=== PATIENT | female | born 1990 | race Caucasian/White ===

== ENCOUNTER 2022-02-22 15:29 | Outpatient (CLI) | payer BC, SELFPAY ==
[2022-02-22 12:10] LABS: CREATININE 0.7 mg/dL (0.55-1.02); Estimated GFR 119.24 (mL/min/1.73m2)
== END 2022-02-22 15:30 | disposition home or self-care (01) ==
PROVIDERS: PCP Radiology Radiation Oncology; Visit Provider Radiology Radiation Oncology
DX: C51.9 Malignant neoplasm of vulva, unspecified (principal)
CPT/HCPCS: 36415; 82565

== ENCOUNTER 2022-03-22 17:34 | Outpatient (CLI) | payer BC, SELFPAY ==
[2022-03-22 13:27] LABS: Abs Immature Grans 0.04 10^3/uL (0.0-0.06); Absolute Basophil Count 0.04 10^3/uL (0.0-0.2); Absolute Eosinophil Count 0.21 10^3/uL (0.0-0.7); Absolute Lymphocyte Count 1.82 10^3/uL (1.2-3.4); Absolute Monocyte Count 0.57 10^3/uL (0.1-0.8); Absolute Neutrophil Count 6.24 10^3/uL (1.2-6.7); Basophils % 0.4; Eosinophils % 2.4; HGB 13.8 g/dL (11.2-15.7); Immature Grans % 0.4; Lymphocytes % 20.4; MCHC 35.4 % (32.0-36.0); MCV 91 fL (80-95); MPV 10.1 fL (8.0-11.0); Monocytes % 6.4; Platelet Count 284 10^3/uL (130-400); RBC 4.31 10^6/uL (3.93-5.22); RDW 11.4 % (11.7-14.6); RDW-SD 38.2 fL; WBC 8.92 10^3/uL (4.4-10.8)
[2022-03-22 14:02] LABS: ALT 34 U/L (14-59); AST 20 U/L (15-37); Alkaline Phosphatase 78 U/L (46-116); Anion Gap 9.9 mmol/L (3-11); BUN 12 mg/dL (7-18); Bilirubin, Total 0.4 mg/dL (0.2-1.0); CO2 25.1 mmol/L (21.0-32.0); CREATININE 0.8 mg/dL (0.55-1.02); Calcium 9.2 mg/dL (8.5-10.1); Chloride 100 mmol/L (98-107); Estimated GFR 101.59 (mL/min/1.73m2); Glucose 111 mg/dL (74-106); Magnesium 1.9 mg/dL (1.8-2.4); Potassium 3.9 mmol/L (3.5-5.1); Sodium 135 mmol/L (136-145); Total Protein 7.8 g/dL (6.4-8.2)
== END 2022-03-22 17:35 | disposition home or self-care (01) ==
LOC: LBO 17:34
PROVIDERS: PCP Radiology Radiation Oncology; Visit Provider Nurse Practitioner Adult Health
DX: C51.9 Malignant neoplasm of vulva, unspecified (principal)
CPT/HCPCS: 36415; 80053; 83735; 85025

== ENCOUNTER 2022-03-23 10:48 | Outpatient (CLI) | payer BC, SELFPAY | END 2022-03-23 10:49 | disposition home or self-care (01) | PROVIDERS: PCP Radiology Radiation Oncology; Visit Provider Nurse Practitioner Adult Health | DX: C51.9 Malignant neoplasm of vulva, unspecified (principal) | CPT/HCPCS: 36415; 80053; 83735; 85025 ==

== ENCOUNTER 2022-03-29 03:19 | Outpatient (CLI) | payer BC, SELFPAY ==
[2022-03-29 10:35] LABS: Abs Immature Grans 0.03 10^3/uL (0.0-0.06); Absolute Basophil Count 0.03 10^3/uL (0.0-0.2); Absolute Eosinophil Count 0.18 10^3/uL (0.0-0.7); Absolute Monocyte Count 0.51 10^3/uL (0.1-0.8); Absolute Neutrophil Count 4.95 10^3/uL (1.2-6.7); Basophils % 0.4; Eosinophils % 2.7; HGB 12.6 g/dL (11.2-15.7); Immature Grans % 0.4; Lymphocytes % 14.9; MCH 31.9 pg (27.0-33.0); MCV 91 fL (80-95); MPV 9.8 fL (8.0-11.0); Monocytes % 7.6; Platelet Count 170 10^3/uL (130-400); RBC 3.95 10^6/uL (3.93-5.22); RDW 11.5 % (11.7-14.6); RDW-SD 38.4 fL
[2022-03-29 11:01] LABS: ALT 34 U/L (14-59); AST 19 U/L (15-37); Albumin 3.8 g/dL (3.4-5.0); Alkaline Phosphatase 91 U/L (46-116); Anion Gap 9.1 mmol/L (3-11); BUN 11 mg/dL (7-18); Bilirubin, Total 0.5 mg/dL (0.2-1.0); CO2 25.9 mmol/L (21.0-32.0); CREATININE 0.8 mg/dL (0.55-1.02); Calcium 9.1 mg/dL (8.5-10.1); Chloride 101 mmol/L (98-107); Estimated GFR 101.59 (mL/min/1.73m2); Glucose 103 mg/dL (74-106); Magnesium 1.9 mg/dL (1.8-2.4); Potassium 4.1 mmol/L (3.5-5.1); Sodium 136 mmol/L (136-145); Total Protein 7.5 g/dL (6.4-8.2)
== END 2022-03-29 03:20 | disposition home or self-care (01) ==
PROVIDERS: PCP Radiology Radiation Oncology; Visit Provider Nurse Practitioner Adult Health
DX: C51.9 Malignant neoplasm of vulva, unspecified (principal)
CPT/HCPCS: 36415; 80053; 83735; 85025

== ENCOUNTER 2022-04-06 03:34 | Outpatient (CLI) | payer BC, SELFPAY ==
[2022-04-06 08:38] LABS: Abs Immature Grans 0.02 10^3/uL (0.0-0.06); Absolute Basophil Count 0.03 10^3/uL (0.0-0.2); Absolute Eosinophil Count 0.13 10^3/uL (0.0-0.7); Absolute Lymphocyte Count 0.93 10^3/uL (1.2-3.4); Absolute Monocyte Count 0.42 10^3/uL (0.1-0.8); Basophils % 0.7; Eosinophils % 3.2; HCT 34.7 % (36.0-46.0); HGB 11.9 g/dL (11.2-15.7); Immature Grans % 0.5; Lymphocytes % 23.1; MCH 31.7 pg (27.0-33.0); MCHC 34.3 % (32.0-36.0); MCV 93 fL (80-95); MPV 9.4 fL (8.0-11.0); Monocytes % 10.4; Neutrophils % 62.1; Platelet Count 189 10^3/uL (130-400); RBC 3.75 10^6/uL (3.93-5.22); RDW 11.8 % (11.7-14.6); RDW-SD 38.8 fL; WBC 4.03 10^3/uL (4.4-10.8)
[2022-04-06 08:55] LABS: ALT 28 U/L (14-59); AST 17 U/L (15-37); Albumin 3.7 g/dL (3.4-5.0); Alkaline Phosphatase 92 U/L (46-116); Anion Gap 8.2 mmol/L (3-11); BUN 16 mg/dL (7-18); Bilirubin, Total 0.3 mg/dL (0.2-1.0); CO2 27.8 mmol/L (21.0-32.0); CREATININE 0.9 mg/dL (0.55-1.02); Calcium 9.2 mg/dL (8.5-10.1); Chloride 103 mmol/L (98-107); Glucose 109 mg/dL (74-106); Magnesium 1.8 mg/dL (1.8-2.4); Potassium 4.4 mmol/L (3.5-5.1); Sodium 139 mmol/L (136-145); Total Protein 7.5 g/dL (6.4-8.2)
== END 2022-04-06 03:35 | disposition home or self-care (01) ==
PROVIDERS: Internal Medicine; PCP Radiology Radiation Oncology; Visit Provider Nurse Practitioner Adult Health
DX: C51.9 Malignant neoplasm of vulva, unspecified (principal)
CPT/HCPCS: 36415; 80053; 83735; 85025

== ENCOUNTER 2022-04-13 03:44 | Outpatient (CLI) | payer BC, SELFPAY ==
[2022-04-13 08:45] LABS: Abs Immature Grans 0.01 10^3/uL (0.0-0.06); Absolute Basophil Count 0.02 10^3/uL (0.0-0.2); Absolute Lymphocyte Count 0.84 10^3/uL (1.2-3.4); Absolute Monocyte Count 0.34 10^3/uL (0.1-0.8); Basophils % 0.5; Eosinophils % 2.5; HCT 32.2 % (36.0-46.0); HGB 11.2 g/dL (11.2-15.7); Immature Grans % 0.2; Lymphocytes % 20.9; MCH 31.8 pg (27.0-33.0); MCHC 34.8 % (32.0-36.0); MCV 92 fL (80-95); MPV 9.2 fL (8.0-11.0); Monocytes % 8.5; Neutrophils % 67.4; Platelet Count 148 10^3/uL (130-400); RBC 3.52 10^6/uL (3.93-5.22); RDW 12.1 % (11.7-14.6); RDW-SD 39.1 fL; WBC 4.01 10^3/uL (4.4-10.8)
[2022-04-13 09:05] LABS: ALT 27 U/L (14-59); AST 19 U/L (15-37); Albumin 3.6 g/dL (3.4-5.0); Alkaline Phosphatase 82 U/L (46-116); Anion Gap 6.7 mmol/L (3-11); BUN 17 mg/dL (7-18); Bilirubin, Total 0.4 mg/dL (0.2-1.0); CO2 26.3 mmol/L (21.0-32.0); CREATININE 0.9 mg/dL (0.55-1.02); Calcium 8.8 mg/dL (8.5-10.1); Chloride 105 mmol/L (98-107); Glucose 122 mg/dL (74-106); Magnesium 1.8 mg/dL (1.8-2.4); Potassium 4.3 mmol/L (3.5-5.1); Sodium 138 mmol/L (136-145); Total Protein 7.4 g/dL (6.4-8.2)
== END 2022-04-13 03:45 | disposition home or self-care (01) ==
PROVIDERS: PCP Radiology Radiation Oncology; Visit Provider Nurse Practitioner Adult Health
DX: C51.9 Malignant neoplasm of vulva, unspecified (principal)
CPT/HCPCS: 36415; 80053; 83735; 85025

== ENCOUNTER 2022-04-19 03:22 | Outpatient (CLI) | payer BC, SELFPAY ==
[2022-04-19 10:33] LABS: Abs Immature Grans 0.02 10^3/uL (0.0-0.06); Absolute Basophil Count 0.03 10^3/uL (0.0-0.2); Absolute Eosinophil Count 0.07 10^3/uL (0.0-0.7); Absolute Lymphocyte Count 0.78 10^3/uL (1.2-3.4); Absolute Monocyte Count 0.49 10^3/uL (0.1-0.8); Absolute Neutrophil Count 5.24 10^3/uL (1.2-6.7); Basophils % 0.5; Eosinophils % 1.1; HCT 30.3 % (36.0-46.0); HGB 11.1 g/dL (11.2-15.7); Immature Grans % 0.3; Lymphocytes % 11.8; MCH 33.1 pg (27.0-33.0); MCHC 36.6 % (32.0-36.0); MCV 90 fL (80-95); MPV 9.1 fL (8.0-11.0); Monocytes % 7.4; Neutrophils % 78.9; Platelet Count 151 10^3/uL (130-400); RBC 3.35 10^6/uL (3.93-5.22); RDW 12.6 % (11.7-14.6); RDW-SD 38.7 fL; WBC 6.63 10^3/uL (4.4-10.8)
[2022-04-19 14:02] LABS: ALT 32 U/L (14-59); AST 20 U/L (15-37); Albumin 3.7 g/dL (3.4-5.0); Alkaline Phosphatase 84 U/L (46-116); Anion Gap 9.7 mmol/L (3-11); BUN 13 mg/dL (7-18); Bilirubin, Total 0.4 mg/dL (0.2-1.0); CO2 24.3 mmol/L (21.0-32.0); CREATININE 0.9 mg/dL (0.55-1.02); Calcium 8.7 mg/dL (8.5-10.1); Chloride 99 mmol/L (98-107); Glucose 105 mg/dL (74-106); Magnesium 1.3 mg/dL (1.8-2.4); Potassium 4.5 mmol/L (3.5-5.1); Sodium 133 mmol/L (136-145); Total Protein 7.5 g/dL (6.4-8.2)
== END 2022-04-19 03:23 | disposition home or self-care (01) ==
PROVIDERS: PCP Radiology Radiation Oncology; Visit Provider Nurse Practitioner Adult Health
DX: C51.9 Malignant neoplasm of vulva, unspecified (principal)
CPT/HCPCS: 36415; 80053; 83735; 85025

== ENCOUNTER 2022-04-26 02:52 | Outpatient (CLI) | payer BC, SELFPAY ==
[2022-04-26 10:10] LABS: Abs Immature Grans 0.02 10^3/uL (0.0-0.06); Absolute Basophil Count 0.01 10^3/uL (0.0-0.2); Absolute Eosinophil Count 0.07 10^3/uL (0.0-0.7); Absolute Lymphocyte Count 0.75 10^3/uL (1.2-3.4); Absolute Monocyte Count 0.37 10^3/uL (0.1-0.8); Absolute Neutrophil Count 3.11 10^3/uL (1.2-6.7); Basophils % 0.2; Eosinophils % 1.6; HCT 27.6 % (36.0-46.0); HGB 9.9 g/dL (11.2-15.7); Immature Grans % 0.5; Lymphocytes % 17.3; MCH 32.5 pg (27.0-33.0); MCHC 35.9 % (32.0-36.0); MCV 91 fL (80-95); MPV 9.3 fL (8.0-11.0); Monocytes % 8.5; Neutrophils % 71.9; Platelet Count 136 10^3/uL (130-400); RBC 3.05 10^6/uL (3.93-5.22); RDW 13.7 % (11.7-14.6); RDW-SD 42.7 fL; WBC 4.33 10^3/uL (4.4-10.8)
[2022-04-26 10:11] LABS: ALT 27 U/L (14-59); AST 17 U/L (15-37); Albumin 3.6 g/dL (3.4-5.0); Alkaline Phosphatase 80 U/L (46-116); Anion Gap 8.7 mmol/L (3-11); BUN 14 mg/dL (7-18); Bilirubin, Total 0.4 mg/dL (0.2-1.0); CO2 26.3 mmol/L (21.0-32.0); CREATININE 0.8 mg/dL (0.55-1.02); Calcium 8.9 mg/dL (8.5-10.1); Chloride 100 mmol/L (98-107); Estimated GFR 101.59 (mL/min/1.73m2); Glucose 103 mg/dL (74-106); Magnesium 1.4 mg/dL (1.8-2.4); Potassium 4.4 mmol/L (3.5-5.1); Sodium 135 mmol/L (136-145); Total Protein 7.4 g/dL (6.4-8.2)
== END 2022-04-26 09:30 ==
PROVIDERS: Internal Medicine; PCP Radiology Radiation Oncology; Visit Provider Nurse Practitioner Adult Health
DX: C51.9 Malignant neoplasm of vulva, unspecified (principal)
CPT/HCPCS: 36415; 80053; 83735; 85025

== ENCOUNTER 2022-05-11 11:24 | Outpatient (CLI) | payer BC, SELFPAY ==
[2022-05-11 11:14] LABS: Abs Immature Grans 0.01 10^3/uL (0.0-0.06); Absolute Basophil Count 0.01 10^3/uL (0.0-0.2); Absolute Eosinophil Count 0.07 10^3/uL (0.0-0.7); Absolute Lymphocyte Count 0.73 10^3/uL (1.2-3.4); Absolute Monocyte Count 0.32 10^3/uL (0.1-0.8); Absolute Neutrophil Count 2.01 10^3/uL (1.2-6.7); Basophils % 0.3; Eosinophils % 2.2; HCT 24.4 % (36.0-46.0); HGB 8.5 g/dL (11.2-15.7); Immature Grans % 0.3; Lymphocytes % 23.2; MCH 33.9 pg (27.0-33.0); MCHC 34.8 % (32.0-36.0); MCV 97 fL (80-95); MPV 8.7 fL (8.0-11.0); Monocytes % 10.2; Neutrophils % 63.8; Platelet Count 174 10^3/uL (130-400); RBC 2.51 10^6/uL (3.93-5.22); RDW 17.9 % (11.7-14.6); RDW-SD 59.6 fL; WBC 3.15 10^3/uL (4.4-10.8)
[2022-05-11 11:35] LABS: ALT 25 U/L (14-59); AST 16 U/L (15-37); Albumin 3.8 g/dL (3.4-5.0); Alkaline Phosphatase 75 U/L (46-116); Anion Gap 10.3 mmol/L (3-11); BUN 15 mg/dL (7-18); Bilirubin, Total 0.4 mg/dL (0.2-1.0); CO2 23.7 mmol/L (21.0-32.0); Chloride 106 mmol/L (98-107); Estimated GFR 77.72 (mL/min/1.73m2); Glucose 104 mg/dL (74-106); Magnesium 1.8 mg/dL (1.8-2.4); Potassium 4.3 mmol/L (3.5-5.1); Sodium 140 mmol/L (136-145); Total Protein 7.3 g/dL (6.4-8.2)
== END 2022-05-11 11:25 | disposition home or self-care (01) ==
LOC: LBO 11:25
PROVIDERS: PCP Radiology Radiation Oncology; Visit Provider Nurse Practitioner Adult Health
DX: C51.9 Malignant neoplasm of vulva, unspecified (principal)
CPT/HCPCS: 36415; 80053; 83735; 85025